=== PATIENT | female | born 1975 | race Caucasian/White ===

== ENCOUNTER 2020-06-01 23:44 | Emergency (ER) | payer OTHER, SELFPAY ==
[2020-06-01 23:46] VITALS: BP 137/88; PULSE 85; RESP 12; TEMP 36.6; O2SAT 98; BMI 29.5
[2020-06-02 00:53] LABS: Basophils Absolute Auto 0.1 X10*3/uL (0.0-0.2); Basophils Percent Auto 0.6 % (0-2); Eosinophils Absolute Auto 0.4 X10*3/uL (0.0-0.4); Hematocrit 41.3 % (37-47); Imm Gran Abs Auto 0.03 X10*3/uL (0.00-0.03); Imm Gran Pct Auto 0.3 % (0.0-0.4); Lymphocytes Absolute Auto 2.1 X10*3/uL (1.2-4.9); MANUAL DIFF FLAG NO; Mean Corpuscular HGB Conc 33.9 g/dl (31.0-35.0); Mean Corpuscular Hemoglobin 28.6 pg (27.0-33.0); Mean Corpuscular Volume 84.3 fL (80-98); Monocytes Absolute Auto 0.7 X10*3/uL (0.1-1.2); Monocytes Percent Auto 7.6 % (2-11); Neutrophils Absolute Auto 5.7 X10*3/uL (2.0-8.3); Neutrophils Percent Auto 64.5 % (45-73); Platelet Count 213 X10*3/uL (160-400); Red Cell Distribution Width 13.2 % (11.0-16.0); White Blood Count 8.9 X10*3/uL (4.8-10.8)
[2020-06-02 01:09] LABS: COVID-19 Test Negative (Negative)
--- NOTE | 2020-06-02 01:10 | PC.NURSE ---
Patient had one episode behavioral outburst over not having TV in her room, patient redirected and situated in milieu where she can watch TV, refused to talk to the provider because she is tired, will continue to monitor.
[2020-06-02 01:17] LABS: Ethanol < 10 mg/dL
[2020-06-02 01:20] VITALS: BP 145/99; PULSE 85; RESP 18; TEMP 36.2; O2SAT 96
[2020-06-02 01:22] LABS: Alanine Aminotransferase 42 U/L (0-31); Albumin Level 4.3 g/dL (3.5-5.0); Alkaline Phosphatase 55 U/L (39-117); Anion Gap 11 (12-20); Aspartate Amino Transferase 28 U/L (5-31); Bilirubin Direct 0.4 mg/dL (0.0-0.5); Bilirubin Total 1.1 mg/dL (0.0-1.0); Blood Urea Nitrogen 14 mg/dL (9-16); Calcium 9.3 mg/dL (8.4-10.2); Carbon Dioxide 31 mmol/L (22-29); Chloride 99 mmol/L (96-108); Creatinine Clr Calc Pharmacy 117.6; Estimated Glomerular Filt Rate > 60; Glucose Random 116 mg/dL (60-115); Potassium 3.5 mmol/L (3.3-5.1); Sodium 137 mmol/L (135-145); Total Protein 7.3 g/dL (6.5-8.0)
--- NOTE | 2020-06-02 01:44 | ED_ITS ---
HPI - Psych General Chief Complaint: Psychiatric Symptoms Stated Complaint: Crisis Time Seen by Provider: 06/02/20 01:43 Source: patient Mode of arrival: ambulatory Limitations: no limitations History of Present Illness HPI Narrative: Patient presents to ED for depression suicidal ideation. Patient broke up with her boyfriend of 3 years and lost her home and parents. Patient admits using drugs for come to the ED. Patient has no plan Related Data Home Medications Medication Instructions Recorded Confirmed buprenorphine-naloxone [Suboxone] 1 strip SUBLINGUAL TID 06/02/20 06/02/20 cariprazine [Vraylar] 1 cap PO DAILY 06/02/20 06/02/20 clonazepam 1.5 tab PO BID PRN 06/02/20 06/02/20 escitalopram oxalate 1 tab PO DAILY 06/02/20 06/02/20 lamotrigine 2.5 tab PO DAILY 06/02/20 06/02/20 lisdexamfetamine [Vyvanse] 1 cap PO QAM 06/02/20 06/02/20 quetiapine 1 tab PO BEDTIME 06/02/20 06/02/20 Allergies Allergy/AdvReac Type Severity Reaction Status Date / Time No Known Allergies Allergy Unverified 11/12/19 19:23 [No Known Allergies*] Review of Systems Review of Systems: Yes all other systems are reviewed and are negative Constitutional: Constitutional: Reports as per HPI and Reports no additional constitutional complaints Eyes: Eyes: Reports as per HPI and Reports no additional eye complaints ENT: Reports system reviewed and no additional complaints, except as documented and Reports as per HPI Cardiovascular: Cardiovascular: Reports as per HPI and Reports no additional cardiovascular complaints Respiratory: Respiratory: Reports as per HPI and Reports no additional respiratory complaints Gastrointestinal: Gastrointestinal: Reports as per HPI and Reports no additional gastrointestinal complaints Musculoskeletal: Musculoskeletal: Reports no additional musculoskeletal complaints and Reports as per HPI Neurologic: Reports system reviewed and no additional complaints, except as documented and Reports as per HPI Psychiatric: Psychiatric: Reports no additional psychiatric complaints and Reports as per HPI [facility] Social History Social History Advance Directives: No Physical Exam Vital Signs: Vital Signs: Last Vital Signs Temp 97.1 F 06/02/20 01:20 Pulse 85 06/02/20 01:20 Resp 18 06/02/20 01:20 BP 145/99 H 06/02/20 01:20 Pulse Ox 96 06/02/20 01:20 Body Mass Index 29.5 Const: General: cooperative, healthy appearing, comfortable, no acute distress, well developed, alert and awake Orientation/consciousness: patient oriented x3 HENMT: Head: Yes normal to inspection, Yes No palpable skull fracture present, Yes normocephalic and Yes atraumatic Eyes: General: appearance normal, both eyes and all related structures Neck: Neck: Yes normal visual inspection, Yes full ROM, Yes no lymphadenopathy, Yes no meningeal signs, Yes trachea midline, Yes supple and No tender Chest: Chest palpation & inspection: normal inspection of the chest and normal palpation of entire chest wall Resp: Effort & Inspection: normal respiratory effort and able to speak in complete sentences Auscultation: clear to auscultation bilaterally Cardio: Jugular venous distension: no JVD Heart sounds: S1 normal heart sound present and S2 normal heart sound present GI: Inspection: Yes normal to inspection and No abdominal wall ecchymosis Palpation (GI): Soft to palpation, not firm, nontender, no guarding and not rig id : General: No CVA tenderness and Yes no CVA tenderness Back/Spine/Pelvis: Back: no CVA tenderness, No CVA tenderness and No back tenderness Skin: General skin exam: no rashes or lesions noted and elasticity normal Neuro: General: patient oriented x3, no meningeal signs and CN's II-XI intact bilaterally Cranial nerves: Yes CN's II-XII intact bilaterally Extrem: General: Yes normal to inspection and Yes full ROM Psych: Other: Impression Appearance: grossly normal and well kempt Thought content: Suicidality present Course Course Course Narrative: Labs ordered. Patient to be evaluated by [facility]. Reevaluation(s) Reevaluation #1: Patient lab was drawn. Patient awaiting [facility] evaluation. MDM - Psych MDM Narrative Medical decision making narrative: Drug use. Depression Lab Data Result diagrams: 06/02/20 00:21 06/02/20 00:20 Labs: Lab Results 06/02/20 06/02/20 06/02/20 Range/Units 00:20 00:20 00:20 WBC (4.8-10.8) X10*3/uL RBC (4.20-5.50) X10*6/uL Hgb (12.0-16.0) g/dl Hct (37-47) % MCV (80-98) fL MCH (27.0-33.0) pg MCHC (31.0-35.0) g/dl RDW (11.0-16.0) % Plt Count (160-400) X10*3/uL MPV (9.4-12.3) fL Immature Gran % (Auto) (0.0-0.4) % Neut % (Auto) (45-73) % Lymph % (Auto) (20-40) % [place] % (Auto) (2-11) % Eos % (Auto) (0-4) % Baso % (Auto) (0-2) % Lymph # (Auto) (1.2-4.9) X10*3/uL [place] # (Auto) (0.1-1.2) X10*3/uL Eos # (Auto) (0.0-0.4) X10*3/uL Baso # (Auto) (0.0-0.2) X10*3/uL Abs Immat Gran (auto) (0.00-0.03) X10*3/uL Absolute Neuts (auto) (2.0-8.3) X10*3/uL Absolute Nucleated RBC (0.0-0.012) X10*3/uL Nucleated RBC % (auto) (0.0-0.2) /100WBC Sodium 137 (135-145) mmol/L Potassium 3.5 (3.3-5.1) mmol/L Chloride 99 (96-108) mmol/L Carbon Dioxide 31 H (22-29) mmol/L Anion Gap 11 L (12-20) BUN 14 (9-16) mg/dL Creatinine 0.74 (0.5-1.4) mg/dL Estim Creat Clear Calc 117.6 Estimated GFR > 60 Random Glucose 116 H (60-115) mg/dL Calcium 9.3 (8.4-10.2) mg/dL Total Bilirubin 1.1 H (0.0-1.0) mg/dL Direct Bilirubin 0.4 (0.0-0.5) mg/dL AST 28 (5-31) U/L ALT 42 H (0-31) U/L Alkaline Phosphatase 55 (39-117) U/L Total Protein 7.3 (6.5-8.0) g/dL Albumin 4.3 (3.5-5.0) g/dL Ethyl Alcohol < 10 mg/dL COVID-19 ([facility]) Negative (Negative) COVID-19 Clin Com See Note 06/02/20 Range/Units 00:21 WBC 8.9 (4.8-10.8) X10*3/uL RBC 4.90 (4.20-5.50) X10*6/uL Hgb 14.0 (12.0-16.0) g/dl Hct 41.3 (37-47) % MCV 84.3 (80-98) fL MCH 28.6 (27.0-33.0) pg MCHC 33.9 (31.0-35.0) g/dl RDW 13.2 (11.0-16.0) % Plt Count 213 (160-400) X10*3/uL MPV 9.0 L (9.4-12.3) fL Immature Gran % (Auto) 0.3 (0.0-0.4) % Neut % (Auto) 64.5 (45-73) % Lymph % (Auto) 23.0 (20-40) % [place] % (Auto) 7.6 (2-11) % Eos % (Auto) 4.0 (0-4) % Baso % (Auto) 0.6 (0-2) % Lymph # (Auto) 2.1 (1.2-4.9) X10*3/uL [place] # (Auto) 0.7 (0.1-1.2) X10*3/uL Eos # (Auto) 0.4 (0.0-0.4) X10*3/uL Baso # (Auto) 0.1 (0.0-0.2) X10*3/uL Abs Immat Gran (auto) 0.03 (0.00-0.03) X10*3/uL Absolute Neuts (auto) 5.7 (2.0-8.3) X10*3/uL Absolute Nucleated RBC 0.000 (0.0-0.012) X10*3/uL Nucleated RBC % (auto) 0.0 (0.0-0.2) /100WBC Sodium (135-145) mmol/L Potassium (3.3-5.1) mmol/L Chloride (96-108) mmol/L Carbon Dioxide (22-29) mmol/L Anion Gap (12-20) BUN (9-16) mg/dL Creatinine (0.5-1.4) mg/dL Estim Creat Clear Calc Estimated GFR Random Glucose (60-115) mg/dL Calcium (8.4-10.2) mg/dL Total Bilirubin (0.0-1.0) mg/dL Direct Bilirubin (0.0-0.5) mg/dL AST (5-31) U/L ALT (0-31) U/L Alkaline Phosphatase (39-117) U/L Total Protein (6.5-8.0) g/dL Albumin (3.5-5.0) g/dL Ethyl Alcohol mg/dL COVID-19 ([facility]) (Negative) COVID-19 Clin Com Discharge Plan Discharge Clinical Impression: Depression Prescriptions: No Action clonazepam 0.5 mg tablet 1.5 tab PO BID PRN (Reason: anxiety) RF: 0 lamotrigine 100 mg tablet 2.5 tab PO DAILY RF: 0 escitalopram oxalate 10 mg tablet 1 tab PO DAILY RF: 0 buprenorphine-naloxone [Suboxone] 2-0.5 mg film 1 strip sublingual TID RF: 0 Vyvanse 70 mg capsule 1 cap PO QAM RF: 0 Vraylar 4.5 mg capsule 1 cap PO DAILY RF: 0 quetiapine 25 mg tablet 1 tab PO BEDTIME RF: 0
--- NOTE | 2020-06-02 02:41 | PC.NURSE ---
ZINAN faxed/called/spoke with Ivy/confirmed receipt of referral.
[2020-06-02 02:51] LABS: Glucose Urine UA NEG (NEG); Leukocyte Esterase Urine NEG (NEG); Nitrite Urine NEG (NEG); Specific Gravity - Urine 1.025 (1.005-1.025); Urine Blood NEG (NEG); Urine Ketones NEG (NEG); Urine Protein NEG (NEG-TRACE)
[2020-06-02 02:53] LABS: Appearance Urine CLEAR; Color Urine YELLOW; UPreg QC Valid YES; Urine Pregnancy NEGATIVE (NEGATIVE)
[2020-06-02 03:13] LABS: Bacteria Urine 2+ /LPF; Hyaline Casts Urine 0-2 /LPF; Mucus Urine 2+ /LPF; Squamous Epithelial Cell Urine 1+ /LPF
[2020-06-02 03:16] LABS: Amphetamine Screen Urine POSITIVE (Not Detect); Barbiturates, Urine Not Detected (Not Detect); Benzodiazepines Screen Urine Not Detected (Not Detect); Cannabinoid Screen Urine POSITIVE (Not Detect); Cocaine Screen Urine POSITIVE (Not Detect); Opiate Screen Urine POSITIVE (Not Detect); Phencyclidine Screen Urine Not Detected (Not Detect)
--- NOTE | 2020-06-02 07:02 | PC.NURSE ---
Report received. PT currently resting, calm and cooperative. PT is waiting to be seen by N.
[2020-06-02 09:16] VITALS: BP 148/79; PULSE 96; RESP 16; TEMP 36.6; O2SAT 98
[2020-06-02] MEDS: LORazepam 1 MG TABLET 2 MG PO ×2 (09:40→16:08)
--- NOTE | 2020-06-02 09:46 | PC.NURSE ---
Pt requested medication for symptoms of withdrawal, states that she took a ton of fentanyl PT tearful states why am I not , I took enough to Verbal reassurance given, plan of care explained. Pt medicated per EMAR.
--- NOTE | 2020-06-02 12:37 | PC.NURSE ---
Care team at bedside for eval.
[2020-06-02] MEDS: lamoTRIgine 100 MG TABLET 250 MG PO (14:24)
[2020-06-02] MEDS: Escitalopram Oxalate 10 MG TABLET PO (14:24)
[2020-06-02 16:16] VITALS: BP 141/63; PULSE 119; RESP 18; TEMP 37.1; O2SAT 97
[2020-06-02] MEDS: Buprenorphine/Naloxone 2/0.5mg FILM 1 FILM SUBLINGUAL ×2 (16:20→22:34)
[2020-06-02] MEDS: Nicotine 21 MG PATCH.TD24 TRANSDERMA (16:36)
--- NOTE | 2020-06-02 19:20 | PC.NURSE ---
Report received. PT is sleeping in the room. Respirations even and unlabored. PT is inpatient bed search.
--- NOTE | 2020-06-02 20:52 | MHC.CARE ---
T/W spoke to Jeni MARTINEZ who authorized [facility]. She advised us to contact [facility] once a bed is available and with [facility] updates.
[2020-06-02] MEDS: QUEtiapine Fumarate 25 MG TABLET PO (22:34)
[2020-06-02 22:39] VITALS: BP 146/90; PULSE 95; RESP 18; TEMP 36.6; O2SAT 96
--- NOTE | 2020-06-03 | ECG_ITS ---
Test Reason : MED CLEARANCE Blood Pressure : / mmHG Vent. Rate : 087 BPM Atrial Rate : 087 BPM P-R Int : 172 ms QRS Dur : 098 ms QT Int : 358 ms P-R-T Axes : 062 047 061 degrees QTc Int : 430 ms Normal sinus rhythm Minimal voltage criteria for LVH, may be normal variant Borderline ECG When compared with ECG of 13-JUN-2018 02:42, No significant change was found Referred By: Diana Anderson Electronically Signed By:STONE TAVERAS
--- NOTE | 2020-06-03 06:59 | PC.NURSE ---
Report received. PT currently sleeping, respirations even and unlabored, in no apparent distress. PT is inpatient bedsearch,
[2020-06-03] MEDS: Buprenorphine/Naloxone 2/0.5mg FILM 1 FILM SUBLINGUAL (08:57)
[2020-06-03 09:02] VITALS: BP 136/86; PULSE 94; RESP 16; TEMP 36.2; O2SAT 95
[2020-06-03] MEDS: lamoTRIgine 100 MG TABLET 250 MG PO (09:05)
[2020-06-03] MEDS: Cariprazine HCl 1.5 MG CAPSULE 4.5 MG PO (09:06)
[2020-06-03] MEDS: Escitalopram Oxalate 10 MG TABLET PO (09:06)
--- NOTE | 2020-06-03 10:54 | PC.NURSE ---
Pt accepted to [facility], pt aware of plan of care. Nurse to nurse completed with Manasa CASPER
[2020-06-03] MEDS: LORazepam 1 MG TABLET 2 MG PO (11:31)
== END 2020-06-03 12:57 ==
PROVIDERS: Physician Assistant; Emergency Provider Student in an Organized Health Care Education/Training Program
DX: F32.9 Major depressive disorder, single episode, unspecified (principal); R45.851 Suicidal ideations; Z20.822 Contact with and (suspected) exposure to COVID-19; F11.20 Opioid dependence, uncomplicated; F14.90 Cocaine use, unspecified, uncomplicated; F15.90 Other stimulant use, unspecified, uncomplicated; F12.90 Cannabis use, unspecified, uncomplicated
CPT/HCPCS: 36415; 80048; 80076; 80307; 80320; 81001; 81025; 85025; 87635; 93005; 99285

== ENCOUNTER 2023-04-12 06:45 | Emergency (ER) | payer OTHER, SELFPAY ==
--- NOTE | ~2023-04-12 | XR_ITS ---
EXAMINATION: XR HAND, RIGHT CLINICAL INFORMATION: Pain in the lateral aspect of the right hand COMPARISON: January 2017 TECHNIQUE: PA, lateral, and oblique views of the right hand. FINDINGS: The bones and soft tissues are normal. No fracture. Alignment is anatomic. Joint spaces are maintained. No erosions or soft tissue calcifications. XR/XR hand RT 2V IMPRESSION: Normal right hand. No fracture seen
--- NOTE | ~2023-04-12 | CT_ITS ---
EXAMINATION: CT CHEST WITH CONTRAST CLINICAL INFORMATION: Cough, right apical lung opacity seen on chest x-ray COMPARISON: Chest x-ray on 04/12/2023 TECHNIQUE: Multidetector volumetric CT imaging of the chest was obtained after the administration of 65 mL of Omnipaque 350 intravenous contrast without immediate adverse reactions. Axial MIP volume rendering provided. Sagittal and coronal reformatted images were obtained. This CT examination was performed using dose optimization techniques as appropriate, variously including the following: *Automated exposure control *Adjustment of mA and/or kV according to patient size (this includes techniques or standardized protocols for targeted exams where dose is matched to indication/reason for exam; i.e. extremities or head) *Use of iterative reconstruction technique DLP: 264 mGy-cm FINDINGS: LUNGS: A part solid alveolar density is seen attached to lateral superior border of right lung apex measuring 1.7 cm in AP diameter, 0.8 cm in width, 1.4 cm in vertical height, series 4 image #69, series 5 image #46. A solid alveolar density is seen attached to posterior lateral superior border of right lung apex measuring 1.0 cm in AP diameter, 1.8 cm in width, 1.0 cm in vertical height, series 4 image #83, series 5 image #54. Multiple scattered additional groundglass opacities are seen in bilateral upper lobes, anterior left lower lobe. Additional patchy alveolar infiltrates are seen in posterior medial left upper lobe posterior segment and posterior border of right lower lobe superior segment. PLEURA: No pleural effusion or pneumothorax is seen. PERICARDIUM: No pericardial effusion is seen. MEDIASTINUM AND CAYLA: No abnormally enlarged mediastinal or hilar lymph nodes are seen. TRACHEOBRONCHIAL TREE: Trachea and bilateral mainstem bronchi are patent. THORACIC AORTA: The thoracic aorta is normal in size and smoothly patent. CORONARY ARTERY CALCIFICATIONS: None PULMONARY ARTERIES: The main pulmonary arteries show normal enhancement. There is dilatation of the main pulmonary trunk, measuring 3.2 cm in transverse diameter, compatible with pulmonary arterial hypertension. CHEST WALL AND LOWER NECK: The subcutaneous and muscular chest wall are intact with no focal lesion. No abnormal mass lesion could be seen in the visualized lower neck. BONES: No fracture or dislocation. No focal bone lesion diagnostic of metastatic disease could be seen in the thorax. VISUALIZED UPPER ABDOMEN: Bilateral adrenal glands are not enlarged. Splenomegaly is partially visualized, measuring 14.[address] AP length. CT/CT chest w IV con IMPRESSION: 1. Multiple scattered groundglass and solid alveolar opacities are seen in bilateral upper lobes, left lower lobe and right lower lobe. Findings are suggestive of inflammatory or infectious etiology, atypical pneumonia including acute viral pneumonia. 2. Follow-up contrast enhanced CT scan in 3-6 months to confirm resolution and exclude underlying lung tumor is recommended. 3. No abnormally enlarged mediastinal lymph nodes. 4. Pulmonary arterial hypertension. 5. Partially visualized splenomegaly. Fleischner guidelines were followed.
--- NOTE | ~2023-04-12 | XR_ITS ---
EXAMINATION: XR CHEST CLINICAL INFORMATION: Cough and congestion COMPARISON: None available. TECHNIQUE: 2 views of the chest were obtained. FINDINGS: Heart and mediastinum within normal limits. No vascular congestion, consolidations or effusions. Subtle opacity lateral right lung apex between the third and fourth posterior ribs. No effusions. Bony structures are intact. XR/XR chest 2V IMPRESSION: Subtle opacity right apex. Apical lordotic study recommended. If persistent, CT should be obtained.
[2023-04-12 06:58] VITALS: BP 133/62; PULSE 87; RESP 16; TEMP 36.4; O2SAT 97; BMI 28.1
[2023-04-12 07:25] LABS: Glucose, Whole Blood 117 mg/dL (60-115)
--- NOTE | 2023-04-12 07:33 | ED.GENADULT ---
HPI - General Adult General Chief complaint: General Medical Stated complaint: gen med Time Seen by Provider: 04/12/23 07:33 Source: patient Mode of arrival: ambulatory Limitations: no limitations History of Present Illness HPI narrative: Patient is a 47 year old assigned female at with a history of cocaine and heroin use presenting to the emergency department today requesting to detox. Patient states that over the last 3 days she has been on a binder alternating between cocaine and heroin. Patient states that her hands have been hurting some and she's also had a cough. Patient states that she wants to be medically cleared and placed in rehab. Patient denies any dizziness, lightheadedness, abdominal pain, nausea, vomiting, fever, chills, blurry vision, double vision, loss of vision, chest pain, difficulty breathing, shortness of breath, back pain, night sweats, pain with urination, increased urinary frequency, increased urinary urgency, blood in her urine or stool, syncope or a near syncopal episode, recent trauma or falls, bowel incontinence, bladder incontinence, bowel retention, bladder retention, or any other complaints at this time. Onset (ago): day(s) (3) Severity: mild Relieving factors: none Exacerbating factors: none Associated symptoms: cough Treatments prior to arrival: none Related Data Home Medications Medication Instructions Recorded Confirmed buprenorphine 2 mg-naloxone 0.5 mg 1 strip sublingual TID 06/02/20 06/02/20 sublingual film (Suboxone) cariprazine 4.5 mg capsule 1 cap PO DAILY 06/02/20 06/02/20 (Vraylar) clonazepam 0.5 mg tablet 1 tab PO BID PRN anxiety 06/02/20 06/02/20 escitalopram oxalate 10 mg tablet 1 tab PO DAILY 06/02/20 06/02/20 lamotrigine 100 mg tablet 2.5 tab PO DAILY 06/02/20 06/02/20 lisdexamfetamine 70 mg capsule 1 cap PO QAM 06/02/20 06/02/20 (Vyvanse) quetiapine 25 mg tablet 1 tab PO BEDTIME 06/02/20 06/02/20 Previous Rx's Medication Instructions Recorded doxycycline hyclate 100 mg tablet 100 mg PO BID 7 days #14 tabs 04/12/23 Allergies Allergy/AdvReac Type Severity Reaction Status Date / Time No Known Allergies Allergy Unverified 11/12/19 19:23 [No Known Allergies*] Review of Systems Constitutional: Constitutional: Reports no additional constitutional complaints, Denies chills, Denies fever(s) and Denies night sweats Eyes: Eyes: Reports no additional eye complaints, Denies blurry vision, Denies change in vision, Denies diplopia, Denies eye discharge, Denies loss of vision and Denies eye pain ENT: Denies dizziness Cardiovascular: Cardiovascular: Reports no additional cardiovascular complaints, Denies chest pain, Denies lightheadedness, Denies Loss of Consciousness and Denies dyspnea Respiratory: Respiratory: Reports no additional respiratory complaints, Reports cough and Denies dyspnea Gastrointestinal: Gastrointestinal: Reports no additional gastrointestinal complaints, Denies abdominal pain, Denies melena, Denies hematochezia, Denies change in bowel habits and Denies change in stool character Genitourinary: Genitourinary: Denies hematuria, Denies urinary frequency, Denies dysuria, Denies urinary incontinence, Denies urinary hesitancy and Denies urinary urgency Musculoskeletal: Musculoskeletal: Reports no additional musculoskeletal complaints, Denies numbness and Denies tingling Comments: bilateral hand pain Neurologic: Denies dizziness, Denies loss of vision, Denies numbness and Denies tingling Psychiatric: Psychiatric: Reports no additional psychiatric complaints Endocrine: Endocrine: Reports no additional endocrine complaints Hematologic/Lymphatic: Hematologic/Lymphatic: Reports no additional hematologic/lymphatic complaints Allergic/Immunologic: Allergic/Immunologic: Reports no additional allergic/immunologic complaints PMFSH Past Medical History Attestation statement: The following information was validated with the patient. Source: old records reviewed and nursing notes reviewed Social History Social History Alcohol intake: former Smoked in Last 30 Days: Yes Use of substances other than those prescribed or required for medical reasons: Yes Substance Use Type: Crack/Cocaine and Painkillers Substance Use Frequency: Daily Last Used Substance: Hours (ago) Any prior treatment program specific to substance use: Yes Advance Directives: No Advance Directives Information Provided: Yes Physical Exam ED Vital Signs: Vital Signs - 24 hr 04/12/23 06:58 04/12/23 15:14 Temperature 97.5 F 97.9 F Pulse Rate 87 75 Respiratory Rate 16 16 Blood Pressure 133/62 135/78 Pulse Oximetry 97 96 Oxygen Delivery Method Room Air Room Air BMI result Body Mass Index 28.1 Const General: cooperative, no acute distress, alert and awake Nutritional Appearance: well nourished Orientation/consciousness: patient oriented x3 Limitations: no limitations HENMT Head: Yes normal to inspection and Yes atraumatic Ears: hearing grossly normal bilaterally and external ears normal General nose exam: Normal external nose present, no nasal discharge noted and no epistaxis Face and sinus: Yes normal facial exam, No abrasion and No laceration Mouth: Normal oral and palatal mucosa present, no drooling and no muffled voice Eyes General: appearance normal, both eyes and all related structures Periorbital: periorbital findings normal Eyelids: Yes eyelids normal Conjunctivae: conjunctivae normal Pupils: Equal, round and reactive pupils present EOM: EOMs intact bilaterally Neck Neck: Yes normal visual inspection, Yes full ROM and Yes no lymphadenopathy Chest Chest palpation & inspection: normal inspection of the chest Resp Effort & Inspection: normal respiratory effort and able to speak in complete sentences GI Inspection: Yes normal to inspection Neuro General: patient oriented x3 and moves all extremities Cranial nerves: Yes Equal, round and reactive pupils present Cognition (Neuro): normal cognition Motor exam (neuro): 5/5 motor strength present throughout Sensory Exam: Normal double simultaneous stimulation for sensation Coordination: [id number] test normal Extrem General: Yes normal to inspection, Yes full ROM and Yes capillary refill normal Psych Appearance: grossly normal Mental Status: mental status grossly normal Affect: normal affect Attitude: cooperative Thought process: Normal thought process present Thought content: Normal thought content present Insight: Good insight present (Psych) Course Course Course Narrative: 1555 --> Patient did not want to move over to the POD and instead wanted to discharge. Patient cleared for discharge. Medications Administered Generic Name Dose Route Start Last Admin Trade Name Freq PRN Reason Stop Dose Admin Doxycycline Monohydrate 100 mg 04/12/23 11:00 04/12/23 11:59 Doxycycline Monohydrate 100 Mg Capsule PO 04/19/23 10:59 100 mg BID COLT Administration Discontinued Medications Generic Name Dose Route Start Last Admin Trade Name Freq PRN Reason Stop Dose Admin Iohexol 65 ml 04/12/23 09:10 04/12/23 09:11 Iohexol 350 Mg/Ml 100 Ml Infus..Btl IV 04/12/23 09:11 65 ml ONCE ONE Administration Methadone HCl 20 mg 04/12/23 14:28 04/12/23 15:10 Methadone Hcl 10 Mg Tablet PO 04/12/23 14:29 20 mg ONCE ONE Administration Medical Decision Making Medical Decision Making [facility] Narrative: Patient is a 47 year old assigned female at with a history of cocaine and opiate use presenting to the emergency department today requesting detox and psychiatric placement. Patient's physical exam was unremarkable. Patient's blood work was unremarkable. Patient's chest x-ray showed a subtle opacity in the right apex that radiology recommended a CT to better evaluate. Patient's R hand XR showed no acute process, and patient's chest CT showed evidence of pneumonia. I explained my physical exam findings as well as all test results to the patient. I answered all questions asked by the patient. Patient given dose of antibiotic while here. Patient seen by CARE and addiction teams and she would like to be admitted to a dual diagnosis. Patient is a dual diagnosis bed search. Patient may discharge whenever she pleases. Differential Diagnosis Differential Diagnoses: The differential diagnosis associated with the presentation includes Opiate abuse Cocaine abuse Depression Pneumonia Admission/Observation Consideration of admission/observation: Escalation of care including admission/observation considered Patient would have been admitted to the hospital had her work up had any findings where hospital admission was appropriate and her clinical presentation warranted hospital admission. Consult Healthcare Provider Management of the patient was discussed with: Behavioral Health Provider (spoke with the CARE and addiction teams as noted in the MDM Rationale portion of this note.) Lab Data [facility] Lab Attestation statement: I reviewed the patient's lab results. My interpretation of these results are in the MDM Rationale portion of this note. 04/12/23 07:39 04/12/23 07:39 Labs: Lab Results 04/12/23 04/12/23 04/12/23 Range/Units 06:56 07:39 13:45 WBC 7.9 (4.8-10.8) X10*3/uL RBC 4.69 (4.20-5.50) X10*6/uL Hgb 13.8 (12.0-16.0) g/dl Hct 40.2 (37.0-47.0) % MCV 85.7 (80.0-98.0) fL MCH 29.4 (27.0-33.0) pg MCHC 34.3 (31.0-35.0) g/dl RDW 12.8 (11.0-16.0) % Plt Count 160 (160-400) X10*3/uL MPV 9.7 (9.4-12.3) fL Immature Gran % (Auto) 0.1 (0.0-0.4) % Neut % (Auto) 53.5 (45-73) % Lymph % (Auto) 29.1 (20-40) % Tyler % (Auto) 9.6 (2-11) % Eos % (Auto) 7.2 H (0-4) % Baso % (Auto) 0.5 (0-2) % Lymph # (Auto) 2.3 (1.2-4.9) X10*3/uL Tyler # (Auto) 0.8 (0.1-1.2) X10*3/uL Eos # (Auto) 0.6 H (0.0-0.4) X10*3/uL Baso # (Auto) 0.0 (0.0-0.2) X10*3/uL Abs Immat Gran (auto) 0.01 (0.00-0.03) X10*3/uL Absolute Neuts (auto) 4.3 (2.0-8.3) x10*3/uL Absolute Nucleated RBC 0.000 (0.0-0.012) X10*3/uL Nucleated RBC % (auto) 0.0 (0.0-0.2) /100WBC Sodium 139 (135-145) mmol/L Potassium 3.5 (3.3-5.1) mmol/L Chloride 108 (96-108) mmol/L Carbon Dioxide 25 (22-29) mmol/L Anion Gap 10 L (12-20) BUN 9 (9-16) mg/dL Creatinine 0.72 (0.5-1.4) mg/dL Estim Creat Clear Calc 114.3 Estimated GFR > 60 POC Glucose 117 H (60-115) mg/dL Random Glucose 157 H (60-115) mg/dL Calcium 9.1 (8.4-10.2) mg/dL Magnesium 2.1 (1.6-2.6) mg/dL Total Bilirubin 0.6 (0.0-1.0) mg/dL Direct Bilirubin 0.3 (0.0-0.5) mg/dL AST 33 H (5-31) U/L ALT 40 H (0-31) U/L Alkaline Phosphatase 75 (39-117) U/L Total Protein 7.4 (6.5-8.0) g/dL Albumin 4.0 (3.5-5.0) g/dL Beta HCG, Quant < 2 mIU/mL Urine Color Yellow Urine Appearance Cloudy Urine pH 8.0 (5.0-9.0) Ur Specific Warren 1.025 (1.005-1.025) Urine Protein Negative (Neg-Trace) mg/dL Urine Glucose (UA) Negative (Negative) mg/dL Urine Ketones Negative (Negative) mg/dL Urine Blood Trace H (Negative) Urine Nitrite Negative (Negative) Ur Leukocyte Esterase Large (3+) H (Negative) Urine RBC 0-2 (0-2) /HPF Urine WBC 21-50 H (0-5) /HPF Ur Squamous Epith Cells 0-2 (0-2) /HPF Urine Bacteria 4+ (None Seen) Hyaline Casts 6-10 (0-2) /LPF Urine Opiates Screen POSITIVE H (Not Detect) Urine Fentanyl Screen POSITIVE H (Not Detect) Ur Barbiturates Screen Not Detected (Not Detect) Ur Phencyclidine Scrn Not Detected (Not Detect) Ur Amphetamines Screen Not Detected (Not Detect) U Benzodiazepines Scrn Not Detected (Not Detect) Urine Cocaine Screen POSITIVE H (Not Detect) U Marijuana (THC) Screen Not Detected (Not Detect) COVID-19 (SLICK) Negative (Negative) COVID-19 Clin Com See Note Influenza Type A (NILA) Negative (Negative) Influenza Type B (NILA) Negative (Negative) Influenza A & B Note See Note Independent Interpretation I performed an independent interpretation of an: Plain X-Ray and CT Scan Interpretation: My interpretation is in agreement with the radiologist's impression of these imaging studies. EXAMINATION: XR CHEST CLINICAL INFORMATION: Cough and congestion COMPARISON: None available. TECHNIQUE: 2 views of the chest were obtained. FINDINGS: Heart and mediastinum within normal limits. No vascular congestion, consolidations or effusions. Subtle opacity lateral right lung apex between the third and fourth posterior ribs. No effusions. Bony structures are intact. XR/XR chest 2V IMPRESSION: Subtle opacity right apex. Apical lordotic study recommended. If persistent, CT should be obtained. Dictated By: Lizeth Mccracken MD Signed By: Electronically signed by Lizeth Mccracken MD 04/12/23 0815 EXAMINATION: XR HAND, RIGHT CLINICAL INFORMATION: Pain in the lateral aspect of the right hand COMPARISON: January 2017 TECHNIQUE: PA, lateral, and oblique views of the right hand. FINDINGS: The bones and soft tissues are normal. No fracture. Alignment is anatomic. Joint spaces are maintained. No erosions or soft tissue calcifications. XR/XR hand RT 2V IMPRESSION: Normal right hand. No fracture seen Dictated By: Yifan Triplett MD Signed By: Electronically signed by Yifan Triplett MD 04/12/23 0911 EXAMINATION: CT CHEST WITH CONTRAST CLINICAL INFORMATION: Cough, right apical lung opacity seen on chest x-ray COMPARISON: Chest x-ray on 04/12/2023 TECHNIQUE: Multidetector volumetric CT imaging of the chest was obtained after the administration of 65 mL of Omnipaque 350 intravenous contrast without immediate adverse reactions. Axial MIP volume rendering provided. Sagittal and coronal reformatted images were obtained. This CT examination was performed using dose optimization techniques as appropriate, variously including the following: *Automated exposure control *Adjustment of mA and/or kV according to patient size (this includes techniques or standardized protocols for targeted exams where dose is matched to indication/reason for exam; i.e. extremities or head) *Use of iterative reconstruction technique DLP: 264 mGy-cm FINDINGS: LUNGS: A part solid alveolar density is seen attached to lateral superior border of right lung apex measuring 1.7 cm in AP diameter, 0.8 cm in width, 1.4 cm in vertical height, series 4 image #69, series 5 image #46. A solid alveolar density is seen attached to posterior lateral superior border of right lung apex measuring 1.0 cm in AP diameter, 1.8 cm in width, 1.0 cm in vertical height, series 4 image #83, series 5 image #54. Multiple scattered additional groundglass opacities are seen in bilateral upper lobes, anterior left lower lobe. Additional patchy alveolar infiltrates are seen in posterior medial left upper lobe posterior segment and posterior border of right lower lobe superior segment. PLEURA: No pleural effusion or pneumothorax is seen. PERICARDIUM: No pericardial effusion is seen. MEDIASTINUM AND CAYLA: No abnormally enlarged mediastinal or hilar lymph nodes are seen. TRACHEOBRONCHIAL TREE: Trachea and bilateral mainstem bronchi are patent. THORACIC AORTA: The thoracic aorta is normal in size and smoothly patent. CORONARY ARTERY CALCIFICATIONS: None PULMONARY ARTERIES: The main pulmonary arteries show normal enhancement. There is dilatation of the main pulmonary trunk, measuring 3.2 cm in transverse diameter, compatible with pulmonary arterial hypertension. CHEST WALL AND LOWER NECK: The subcutaneous and muscular chest wall are intact with no focal lesion. No abnormal mass lesion could be seen in the visualized lower neck. BONES: No fracture or dislocation. No focal bone lesion diagnostic of metastatic disease could be seen in the thorax. VISUALIZED UPPER ABDOMEN: Bilateral adrenal glands are not enlarged. Splenomegaly is partially visualized, measuring 14.[address] AP length[address] CT/CT chest w IV con IMPRESSION: 1. Multiple scattered groundglass and solid alveolar opacities are seen in bilateral upper lobes, left lower lobe and right lower lobe. Findings are suggestive of inflammatory or infectious etiology, atypical pneumonia including acute viral pneumonia. 2. Follow-up contrast enhanced CT scan in 3-6 months to confirm resolution and exclude underlying lung tumor is recommended. 3. No abnormally enlarged mediastinal lymph nodes. 4. Pulmonary arterial hypertension. 5. Partially visualized splenomegaly. Fleischner guidelines were followed. Dictated By: Merari Brambila Signed By: Electronically signed by Merari Brambila 04/12/23 1047 Radiology Impression Discussion of test interpretation with radiology: I have reviewed the radiologist's reading. Prescription Management I considered prescription management with: Antibiotic (patient prescribed antibiotic for pneumonia) Critical Care Time Critical Care Time Critical Care Time: Yes Total Critical Care Time: 45 Attestation: I spent 45 minutes of Critical Care Time with this patient. This does not include time spent on separately reported billable procedures. Discharge Plan Discharge Clinical Impression: Pneumonia, Cocaine use, Opiate use Patient Disposition: Home, Self-Care Instructions: Pneumonia (ED), Opioid Use Disorder (ED), Cocaine Abuse (ED) Additional Instructions: Follow up with your primary care provider. Return to the emergency department immediately if your symptoms worsen or if you develop any dizziness, shortness of breath, difficulty breathing, chest pain, blurry vision, loss of vision, nausea, vomiting, abdominal pain, fever, chills, back pain, or any other complaints. Prescriptions: New doxycycline hyclate 100 mg tablet 100 mg PO BID 7 Days Qty: 14 0RF No Action clonazepam 0.5 mg tablet 1 tab PO BID PRN (Reason: anxiety) lamotrigine 100 mg tablet 2.5 tab PO DAILY escitalopram oxalate 10 mg tablet 1 tab PO DAILY buprenorphine-naloxone [Suboxone] 2-0.5 mg film 1 strip sublingual TID Vyvanse 70 mg capsule 1 cap PO QAM Vraylar 4.5 mg capsule 1 cap PO DAILY quetiapine 25 mg tablet 1 tab PO BEDTIME [place] [facility] [place] (Call to establish and follow up with a primary are provider. If you already have a primary care provider, please follow up with them.) [facility] [place] [place] Group] (Call to establish and follow up with a primary are provider. If you already have a primary care provider, please follow up with them.) [facility] [place] [facility] [place] (Call to establish and follow up with a primary are provider. If you already have a primary care provider, please follow up with them.) Print Language: Malay
[2023-04-12 07:44] LABS: MANUAL DIFF FLAG NO
--- NOTE | 2023-04-12 07:47 | PC.NURSE ---
Patient placed in C PE Room 2. Requested urine, but cant go right now . Given po fluids and sandwich. Sent to Xray at this time. Labs drawn/sent
[2023-04-12 07:50] LABS: Basophils Percent Auto 0.5 % (0-2); Eosinophils Absolute Auto 0.6 X10*3/uL (0.0-0.4); Eosinophils Percent Auto 7.2 % (0-4); Hematocrit 40.2 % (37.0-47.0); Hemoglobin 13.8 g/dl (12.0-16.0); Imm Gran Abs Auto 0.01 X10*3/uL (0.00-0.03); Imm Gran Pct Auto 0.1 % (0.0-0.4); Lymphocytes Absolute Auto 2.3 X10*3/uL (1.2-4.9); Lymphocytes Percent Auto 29.1 % (20-40); Mean Corpuscular HGB Conc 34.3 g/dl (31.0-35.0); Mean Corpuscular Hemoglobin 29.4 pg (27.0-33.0); Mean Corpuscular Volume 85.7 fL (80.0-98.0); Mean Platelet Volume 9.7 fL (9.4-12.3); Monocytes Absolute Auto 0.8 X10*3/uL (0.1-1.2); Monocytes Percent Auto 9.6 % (2-11); Neutrophils Absolute Auto 4.3 x10*3/uL (2.0-8.3); Neutrophils Percent Auto 53.5 % (45-73); Platelet Count 160 X10*3/uL (160-400); Red Blood Count 4.69 X10*6/uL (4.20-5.50); Red Cell Distribution Width 12.8 % (11.0-16.0); White Blood Count 7.9 X10*3/uL (4.8-10.8)
[2023-04-12 07:59] LABS: Anion Gap 10 (12-20); Blood Urea Nitrogen 9 mg/dL (9-16); Calcium 9.1 mg/dL (8.4-10.2); Carbon Dioxide 25 mmol/L (22-29); Chloride 108 mmol/L (96-108); Creatinine Clr Calc Pharmacy 114.3; Estimated Glomerular Filt Rate > 60; Glucose Random 157 mg/dL (60-115); Potassium 3.5 mmol/L (3.3-5.1); Sodium 139 mmol/L (135-145)
[2023-04-12 08:01] LABS: IDNOW Serial# 08D9AD1C; IDNOW Serial# 152EDE1D; Influenza A Negative (Negative); Influenza B2 Negative (Negative)
[2023-04-12 08:02] LABS: COVID-19 Test Negative (Negative)
[2023-04-12 08:42] LABS: HCG Quantitative < 2 mIU/mL
[2023-04-12] MEDS: iohexoL 350 MG/ML 100 ML INFUS..BTL 65 ML IV (09:11)
[2023-04-12 09:13] LABS: Alanine Aminotransferase 40 U/L (0-31); Alkaline Phosphatase 75 U/L (39-117); Aspartate Amino Transferase 33 U/L (5-31); Bilirubin Direct 0.3 mg/dL (0.0-0.5); Bilirubin Total 0.6 mg/dL (0.0-1.0); Magnesium 2.1 mg/dL (1.6-2.6); Total Protein 7.4 g/dL (6.5-8.0)
--- NOTE | 2023-04-12 09:47 | MHC.RECOVRN ---
Met with pt in ED [facility] after pt expressed interest in ATS. Pt had presented to the ED after substance use and spending the last 3 days in her car. Seeking medical clearance and ATS. Pt laying in bed, asleep, wakes to voice, engages in conversation. Pt reports heroin/fentanyl use, 1-1.5 bundles daily, [place], as well as cocaine, $50 daily, IN x a few months. Pt reports prior to that she had been in recovery x 13 months utilizing [facility]. Pt has not provided UDS as of this note. Discussed ATS, pt reports she needs dual diagnosis. Pt reports paranoia and needing help with her psychiatric medication. Pt reports she has had positive experiences at [facility], and [facility] and would like to return to one of those facilities. Pt educated regarding t/w abilities/recovery, pt requesting to speak with someone from CARE Team. Pt denies other questions or concerns for t/w. CARE Team and provider aware.
[2023-04-12] MEDS: Doxycycline Monohydrate 100 MG CAPSULE PO (11:59)
[2023-04-12 13:52] LABS: Appearance Urine Cloudy; Color Urine Yellow; Glucose Urine UA Negative (Negative); Leukocyte Esterase Urine Large (3+) (Negative); Nitrite Urine Negative (Negative); Specific Gravity - Urine 1.025 (1.005-1.025); UMIC TRIGGER UACC YES; Urine Blood Trace (Negative); Urine Ketones Negative (Negative); Urine Protein Negative (Neg-Trace)
[2023-04-12 14:00] LABS: Amphetamine Screen Urine Not Detected (Not Detect); Barbiturates, Urine Not Detected (Not Detect); Benzodiazepines Screen Urine Not Detected (Not Detect); Cannabinoid Screen Urine Not Detected (Not Detect); Cocaine Screen Urine POSITIVE (Not Detect); Fentanyl, urine POSITIVE (Not Detect); Opiate Screen Urine POSITIVE (Not Detect); Phencyclidine Screen Urine Not Detected (Not Detect)
[2023-04-12 14:02] LABS: Bacteria Urine 4+ (None Seen); RBC Urine 0-2 /HPF (0-2); Squamous Epithelial Cell Urine 0-2 /HPF (0-2); UACC Culture Trigger YES; WBC Urine 21-50 /HPF (0-5)
--- NOTE | 2023-04-12 14:55 | MHC.RECOVRN ---
Met with pt to check in. Pt reporting withdrawal symptoms including anxiety and diaphoresis, pt visibly anxious, crying, reporting desire to not be discharged back to the community. Pt at this time is agreeable to dual dx programs, discussed with CARE Team, pt will be referred to RAD Team for placement. Discussed with provider, plan to administer 20 mg methadone to address withdrawal.
[2023-04-12] MEDS: methADONE HCl 10 MG TABLET 20 MG PO (15:10)
[2023-04-12 15:14] VITALS: BP 135/78; PULSE 75; RESP 16; TEMP 36.6; O2SAT 96
== END 2023-04-12 16:36 | disposition home or self-care (01) ==
PROVIDERS: Physician Assistant Medical; Emergency Provider Student in an Organized Health Care Education/Training Program
DX: J18.9 Pneumonia, unspecified organism (principal); F14.90 Cocaine use, unspecified, uncomplicated; F11.20 Opioid dependence, uncomplicated; M79.641 Pain in right hand; R05.9 Cough, unspecified; F41.9 Anxiety disorder, unspecified; Z11.52 Encounter for screening for COVID-19; Z79.899 Other long term (current) drug therapy
CPT/HCPCS: 71046; 71260; 73120; 80048; 80076; 80307; 81001; 82947; 83735; 84702; 85025; 87086; 87502; 87635; 99284; Q9967; S9485